=== PATIENT | male | born 2005 | race Caucasian/White ===

== ENCOUNTER 2024-04-14 15:47 | Inpatient (IN) ==
[2024-04-14] MEDS: SODIUM CHLORIDE 0.9% 2,000 ML IV ONE (16:34)
[2024-04-14] MEDS: ACETAMINOPHEN 1,000 MG/100 ML VIAL IV STA (16:43)
--- NOTE | 2024-04-14 17:10 | Emergency Department Note ---
Impression & Plan Sepsis, Influenza A, Multifocal pneumonia, TERRI (acute kidney injury), Acute hypoxemic respiratory failure, Thrombocytopenia, Elevated procalcitonin ED Provider Note HISTORY OF PRESENT ILLNESS: Patient is a 18-year-old male presenting with fevers, body aches and cough. Patient reports symptoms started 4 days ago. He has had a cough that has been nonproductive, fevers up to 102 Fahrenheit, subjective chills, shortness of breath and diarrhea. He denies any nausea or vomiting. He was seen by [facility] and referred to the emergency department "due to concern for potential pneumonia." EMS reported that the patient was vitally stable and route other than he was febrile. No medications given prehospital. Reports a generalized headache but denies any changes in vision, numbness or tingling or weakness in his extremities. Denies any recent rashes. He denies any sick contact exposures that he is aware of. Patient reports that he has been feeling very short of breath, both at rest and with exertion. He reports he is only able to take a few steps at a time before becoming significantly winded and having to stop to catch his breath. Denies any DVT or PE history. ROS: as above PHYSICAL EXAM: Constitutional: Patient appears in no acute distress. Ill appearing HENT: Head: Normocephalic and atraumatic. Eyes: EOMI, PERRL Mouth/Throat: Mucous membranes moist. Neck: Trachea midline. Neck supple. Full range of motion of the neck without meningismus. Cardiovascular: Tachycardic with regular rhythm. No murmurs, rubs or gallops. Intact distal pulses. Pulmonary/Chest: No respiratory distress. Breath sounds clear and equal bilaterally. No wheezes or rales. Abdominal: Abdomen soft, no tenderness, rebound or guarding. Musculoskeletal: No edema, tenderness or deformity noted. Skin: Warm and dry. No rash, erythema, pallor or cyanosis Psychiatric: Appropriate mood and affect for situation. Neurological: Alert and keenly responsive. CN II-XII grossly intact, moving all extremities equally and fully. MDM: - Vitals signs showed hypotension, tachycardia and fever. Borderline hypoxia at 93% on room air and was placed on 2 L nasal cannula. - History obtained via patient. History as above. - Chronic conditions affecting care: None - Differential diagnoses include, but are not limited to: Viral syndrome; pneumonia; bronchitis; electrolyte abnormality; dysrhythmia - Order placed for continuous cardiac monitoring. At this time, monitor showed rate of 103 bpm with normal sinus rhythm, per my interpretation. - External medical records reviewed. - EKG interpreted by myself showed normal sinus rhythm. Rate tachycardic at 112 bpm. QT 306. No acute ischemic changes. - Laboratory workup interpreted by myself showed normal WBC; thrombocytopenia (plt 101); normal PT/INR; hyponatremia (Na 133); elevated creatinine (Cr 2.14 - unknown baseline); normal troponin; normal lactate; elevated procalcitonin (30.80) - CXR showed multifocal pneumonia, per my interpretation. - Viral respiratory panel positive for influenza A. - Blood cultures obtained - Patient given 2.5L NS in ER. Patient's sepsis fluid volume calculation based on ideal body weight is 2018.10 mL - Patient given 1g IV tylenol for fever - Given 4 mg IV zofran for nausea and vomiting in ER. - Given IV vancomycin and 2g IV rocephin for antibiotic coverage - MRSA nasal swab and sputum culture were obtained. - Discussion was had with bottle caser about patient's case and need for admission - Hospitalist, Dr. Currie, consulted for admission - Patient admitted to [facility] service for further evaluation and management. I have personally spent 36 minutes of critical care time in the direct management of this patient. This includes bedside care, interpretation of diagnostic studies, and testing, discussion with consultants, patient, and family members, and other required patient management activities. This 36 minutes is in excess of all separately billable procedures. ASSESSMENT AND PLAN: Diagnosis: Sepsis; acute hypoxic respiratory failure; influenza A; multifocal pneumonia; TERRI; elevated procalcitonin; thrombocytopenia Plan: Admit Past Med/Surg History Problem List (Updated 04/14/24 @ 19:04 by Smith Currie MD) TERRI (acute kidney injury) Multifocal pneumonia Influenza A Sepsis Medical History (Updated 04/14/24 @ 19:04 by Smith Currie MD) History of viral meningitis Anxiety Surgical History (Updated 04/14/24 @ 19:04 by Smith Currie MD) No pertinent past surgical history Social History Smoking Status: Never smoker Feels Safe at Home: Yes Allergies Allergies Allergy/AdvReac Type Severity Reaction Status Date / Time amoxicillin Allergy Intermediate Hives Unverified 04/14/24 18:54 bacitracin Allergy Intermediate Unverified 04/14/24 14:57 [From Triple Antibiotic] Cephalosporins Allergy Intermediate Unverified 04/14/24 14:57 neomycin Allergy Intermediate Unverified 04/14/24 14:57 [From Triple Antibiotic] Penicillins Allergy Intermediate Unverified 04/14/24 14:57 polymyxin B Allergy Intermediate Unverified 04/14/24 14:57 [From Triple Antibiotic] Home Meds Home Medications Medication Instructions Recorded Confirmed sertraline 50 mg tablet 50 mg PO DAILY 04/14/24 04/14/24 Results & Data (ED) Vital Signs Vital Signs - 24 hr 04/14/24 16:19 04/14/24 16:30 04/14/24 16:31 Temperature 38.7 C H Temperature Source Oral Pulse Rate 139 H 130 H Pulse Rate [Left Apical] Respiratory Rate 18 Respiratory Effort / Characteristics Non-Labored Spontaneous Respiratory Depth Normal Respiratory Pattern Regular Blood Pressure 90/50 L 104/69 Blood Pressure [Right Arm] Blood Pressure Mean 63 86 Blood Pressure Mean [Right Arm] Pulse Oximetry 95 Oxygen Delivery Method Nasal Cannula Oxygen Flow Rate 2 Sepsis Recent Fever Within 48 Hours Yes Sepsis New/Unexplained Change in Mental Status N/A Sepsis Action Taken by Nursing Physician Notified Oxygen Flow Rate - Titration Pulse Oximetry Post Tiitration 04/14/24 16:33 04/14/24 17:00 04/14/24 17:12 Temperature Temperature Source Pulse Rate 123 H 121 H Pulse Rate [Left Apical] Respiratory Rate 23 Respiratory Effort / Characteristics Respiratory Depth Respiratory Pattern Blood Pressure Blood Pressure [Right Arm] 99/49 L Blood Pressure Mean Blood Pressure Mean [Right Arm] 65 Pulse Oximetry 98 92 Oxygen Delivery Method Nasal Cannula Nasal Cannula Oxygen Flow Rate 2 2 Sepsis Recent Fever Within 48 Hours Sepsis New/Unexplained Change in Mental Status Sepsis Action Taken by Nursing Oxygen Flow Rate - Titration Pulse Oximetry Post Tiitration 04/14/24 17:24 04/14/24 17:25 04/14/24 17:30 Temperature 38.2 C H Temperature Source Oral Pulse Rate Pulse Rate [Left Apical] 105 H Respiratory Rate 25 H Respiratory Effort / Characteristics Spontaneous Short of Breath Respiratory Depth Normal Respiratory Pattern Regular Blood Pressure 100/48 L Blood Pressure [Right Arm] Blood Pressure Mean 76 Blood Pressure Mean [Right Arm] Pulse Oximetry 94 Oxygen Delivery Method Nasal Cannula Oxygen Flow Rate 2 Sepsis Recent Fever Within 48 Hours Sepsis New/Unexplained Change in Mental Status Sepsis Action Taken by Nursing Oxygen Flow Rate - Titration Pulse Oximetry Post Tiitration 04/14/24 17:33 04/14/24 17:45 04/14/24 18:00 Temperature Temperature Source Pulse Rate 105 H 98 H Pulse Rate [Left Apical] Respiratory Rate 29 H 34 H Respiratory Effort / Characteristics Respiratory Depth Respiratory Pattern Blood Pressure Blood Pressure [Right Arm] Blood Pressure Mean Blood Pressure Mean [Right Arm] Pulse Oximetry 94 92 89 L Oxygen Delivery Method Nasal Cannula Nasal Cannula Nasal Cannula Oxygen Flow Rate 2 2 2 Sepsis Recent Fever Within 48 Hours Sepsis New/Unexplained Change in Mental Status Sepsis Action Taken by Nursing Oxygen Flow Rate - Titration 3 Pulse Oximetry Post Tiitration 90 04/14/24 18:08 04/14/24 18:09 04/14/24 18:12 Temperature Temperature Source Pulse Rate 107 H 112 H Pulse Rate [Left Apical] Respiratory Rate 23 29 H Respiratory Effort / Characteristics Respiratory Depth Respiratory Pattern Blood Pressure Blood Pressure [Right Arm] Blood Pressure Mean Blood Pressure Mean [Right Arm] Pulse Oximetry 90 90 90 Oxygen Delivery Method Nasal Cannula Nasal Cannula Nasal Cannula Oxygen Flow Rate 3 4 4 Sepsis Recent Fever Within 48 Hours Sepsis New/Unexplained Change in Mental Status Sepsis Action Taken by Nursing Oxygen Flow Rate - Titration 4 Pulse Oximetry Post Tiitration 91 04/14/24 18:15 04/14/24 18:33 04/14/24 18:54 Temperature 37.5 C Temperature Source Oral Pulse Rate 112 H 103 H Pulse Rate [Left Apical] Respiratory Rate 35 H 33 H Respiratory Effort / Characteristics Respiratory Depth Respiratory Pattern Blood Pressure Blood Pressure [Right Arm] Blood Pressure Mean Blood Pressure Mean [Right Arm] Pulse Oximetry 90 93 Oxygen Delivery Method Nasal Cannula Nasal Cannula Oxygen Flow Rate 4 4 Sepsis Recent Fever Within 48 Hours Sepsis New/Unexplained Change in Mental Status Sepsis Action Taken by Nursing Oxygen Flow Rate - Titration Pulse Oximetry Post Tiitration 04/14/24 19:00 Temperature Temperature Source Pulse Rate 103 H Pulse Rate [Left Apical] Respiratory Rate 32 H Respiratory Effort / Characteristics Respiratory Depth Respiratory Pattern Blood Pressure Blood Pressure [Right Arm] Blood Pressure Mean Blood Pressure Mean [Right Arm] Pulse Oximetry 92 Oxygen Delivery Method Nasal Cannula Oxygen Flow Rate 4 Sepsis Recent Fever Within 48 Hours Sepsis New/Unexplained Change in Mental Status Sepsis Action Taken by Nursing Oxygen Flow Rate - Titration Pulse Oximetry Post Tiitration Laboratory Data 04/14/24 16:40 04/14/24 16:40 Lab Results 04/14/24 Range/Units 16:40 WBC 5.37 (4.8-10.8) K/ul RBC 4.50 L (4.70-6.10) M/uL Hgb 13.9 L (14.0-18.0) g/dl Hct 38.1 L (42.0-52.0) % MCV 84.7 (80.0-100.0) fL MCH 30.9 (25.0-34.0) pg MCHC 36.5 H (32.0-36.0) g/dL RDW Std Deviation 38.5 (36.4-46.3) fL RDW Coeff of Adam 12.6 (11.5-14.5) % Plt Count 101 L (130-400) K/uL MPV 11.4 (9.4-12.4) fL Immature Gran % (Auto) 0.9 % Neut % (Auto) 90.1 % Lymph % (Auto) 4.3 % Gonzales % (Auto) 4.1 % Eos % (Auto) 0.0 % Baso % (Auto) 0.6 % Neut # (Auto) 4.84 (1.40-6.50) K/uL Lymph # (Auto) 0.23 L (1.20-3.40) K/uL Gonzales # (Auto) 0.22 (0.11-0.59) K/uL Eos # (Auto) 0.00 (0.00-0.50) K/uL Baso # (Auto) 0.03 (0.00-0.20) K/uL Immature Gran # (Auto) 0.05 (0.01-0.20) K/uL Toxic Vacuolation 1+ Dohle Bodies 1+ PT 11.4 (9.0-12.0) Seconds INR 1.1 (0.9-1.1) APTT 30 (21-31) Seconds PTT Ratio 1.1 Sodium 133 L (136-145) mmol/L Potassium 3.7 (3.5-5.1) mmol/L Chloride 101 (98-107) mmol/L Carbon Dioxide 22 (21-32) mmol/L Anion Gap 10 (3-11) BUN 46 H (6-23) mg/dl Creatinine 2.14 H (0.6-1.4) mg/dl Est Cr Clr Drug Dosing 39.1 ml/min eGFR 44.35 BUN/Creatinine Ratio 21.5 H (10-20) Glucose 117 H (70-99(Fasting)) mg/dl Lactate 1.8 (0.4-2.0) mmol/L Calcium 8.2 L (8.6-10.3) mg/dl Magnesium 2.2 (1.7-2.4) mg/dl Total Bilirubin 2.4 H (0.2-1.0) mg/dl AST 35 (13-39) U/L ALT 20 (7-52) U/L Alkaline Phosphatase 34 (34-104) U/L Troponin I High Sens 17.4 (0-20) pg/ml Total Protein 6.4 (6.0-8.3) gm/dl Albumin 3.8 (3.4-5.0) gm/dl Globulin 2.6 (2.5-4.0) gm/dl Albumin/Globulin Ratio 1.5 (0.9-2) Procalcitonin 30.80 H (0-0.5) ng/ml Adenovirus (PCR) Not Detected (NotDetected) B. pertussis DNA (PCR) Not Detected (NotDetected) B.parapertussis DNA PCR Not Detected (NotDetected) C. pneumoniae DNA (PCR) Not Detected (NotDetected) Coronavirus OC43 (PCR) Not Detected (NotDetected) Coronavirus HKU1 (PCR) Not Detected (NotDetected) Coronavirus 229E (PCR) Not Detected (NotDetected) SARS-CoV-2 (PCR) Not Detected (NotDetected) Coronavirus NL63 (PCR) Not Detected (NotDetected) Human Metapneumovir PCR Not Detected (NotDetected) Influenza A (H3) PCR DETECTED A (NotDetected) Influenza Type B (PCR) Not Detected (NotDetected) M. pneumoniae (PCR) Not Detected (NotDetected) Parainfluenza 1 (PCR) Not Detected (NotDetected) Parainfluenza 2 (PCR) Not Detected (NotDetected) Parainfluenza 3 (PCR) Not Detected (NotDetected) Parainfluenza 4 (PCR) Not Detected (NotDetected) RSV (PCR) Not Detected (NotDetected) Entero/Rhino (PCR) Not Detected (NotDetected) Administered Medications Vancomycin HCl 1,250 mg/ (Sodium Chloride) 525 mls @ 200 mls/hr IV NOW ONE Stop: 04/14/24 20:01 Last Admin: 04/14/24 18:12 Dose: 200 mls/hr Documented By: KILEY Discontinued Medications Sodium Chloride (Nss) 2,000 mls @ 999 mls/hr IV .Q2H1M ONE Stop: 04/14/24 18:26 Last Infusion: 04/14/24 18:30 Dose: Infused Documented By: [facility] Admin: 04/14/24 16:34 Dose: 999 mls/hr Documented By: KYLEE Sodium Chloride (Nss) 500 mls @ 999 mls/hr IV .Q31M ONE Stop: 04/14/24 16:56 Last Infusion: 04/14/24 18:02 Dose: Infused Documented By: [facility] Admin: 04/14/24 17:22 Dose: 999 mls/hr Documented By: KILEY Acetaminophen (Ofirmev) 1,000 mg in 100 mls @ 400 mls/hr IV NOW STA Stop: 04/14/24 16:41 Last Infusion: 04/14/24 16:59 Dose: Infused Documented By: [facility] Admin: 04/14/24 16:43 Dose: 400 mls/hr Documented By: KILEY Ceftriaxone Sodium (Rocephin) 2,000 mg in 50 mls @ 100 mls/hr IV NOW STA Stop: 04/14/24 17:53 Last Infusion: 04/14/24 18:20 Dose: Infused Documented By: [facility] Admin: 04/14/24 17:55 Dose: 100 mls/hr Documented By: KILEY Ondansetron HCl (Ondansetron Inj 2 Mg/Ml 2 Ml Vial) 4 mg IV NOW STA Stop: 04/14/24 18:03 Last Admin: 04/14/24 18:06 Dose: 4 mg Documented By: [facility] Imaging Data Radiologist's Impression: Chest X-Ray 04/14/24 16:26 Chest radiograph, one view History: Sepsis Comparison: None Findings: Single AP view of the chest performed. Patchy opacities are seen throughout the left mid and lower lung, as well as some subtle opacity overlying the perihilar right lower lung. No visualized pleural effusion. No pneumothorax. The cardiomediastinal silhouette is within normal limits. Normal pulmonary vascularity. No evidence for lymphadenopathy. No visualized bony or soft tissue abnormality. Impression: Findings consistent with multifocal pneumonia Electronically signed by Marshall Jefferson 04-14-2024 5:35 PM Discharge Plan Visit Data Chief Complaint: Illness ED Provider: Claudine Giraldo Discharge Problem: Sepsis, Influenza A, Multifocal pneumonia, TERRI (acute kidney injury), Acute hypoxemic respiratory failure, Thrombocytopenia, Elevated procalcitonin Forms Stand Alone Forms: My [facility] Prescriptions Prescriptions: No Action sertraline 50 mg tablet 50 mg PO DAILY Referrals Referrals: PCP,NO [Physician] -
[2024-04-14 17:11] LABS: Albumin Globulin Ratio 1.5 (0.9-2); Albumin Level 3.8 gm/dl (3.4-5.0); BUN Creatinine Ratio 21.5 (10-20); Bilirubin,Total 2.4 mg/dl (0.2-1.0); Calcium 8.2 mg/dl (8.6-10.3); Creatinine Clr Calc Pharmacy 39.1 ml/min; Globulin 2.6 gm/dl (2.5-4.0); Magnesium 2.2 mg/dl (1.7-2.4); Potassium 3.7 mmol/L (3.5-5.1); Total Protein 6.4 gm/dl (6.0-8.3)
[2024-04-14 17:17] LABS: Troponin I High Sensitivity 17.4 pg/ml (0-20)
[2024-04-14 17:22] LABS: Basophils # (auto) 0.03 K/uL (0.00-0.20); Basophils % (auto) 0.6 %; Dohle Bodies 1+; Hematocrit (blood only) 38.1 % (42.0-52.0); Hemoglobin 13.9 g/dl (14.0-18.0); Immature Granulocytes # (auto) 0.05 K/uL (0.01-0.20); Immature Granulocytes % (auto) 0.9 %; Lymphocytes # (auto) 0.23 K/uL (1.20-3.40); Lymphocytes % (auto) 4.3 %; Mean Corpuscular Hemoglobin 30.9 pg (25.0-34.0); Mean Corpuscular Hgb Conc 36.5 g/dL (32.0-36.0); Mean Corpuscular Volume 84.7 fL (80.0-100.0); Mean Platelet Volume 11.4 fL (9.4-12.4); Monocytes # (auto) 0.22 K/uL (0.11-0.59); Monocytes % (auto) 4.1 %; Neutrophils # (auto) 4.84 K/uL (1.40-6.50); Neutrophils % (auto) 90.1 %; Platelet Count 101 K/uL (130-400); RDW Coefficient of Variation 12.6 % (11.5-14.5); RDW Standard Deviation 38.5 fL (36.4-46.3); Toxic Vacuolation 1+; White Blood Count 5.37 K/ul (4.8-10.8)
[2024-04-14] MEDS: SODIUM CHLORIDE 0.9% 500 ML IV ONE (17:22)
[2024-04-14] MEDS ORDERED: VANCOMYCIN CONSULT ACTIVE PRN (17:24)
--- NOTE | 2024-04-14 17:35 | XRay Report ---
Chest radiograph, one view History: Sepsis Comparison: None Findings: Single AP view of the chest performed. Patchy opacities are seen throughout the left mid and lower lung, as well as some subtle opacity overlying the perihilar right lower lung. No visualized pleural effusion. No pneumothorax. The cardiomediastinal silhouette is within normal limits. Normal pulmonary vascularity. No evidence for lymphadenopathy. No visualized bony or soft tissue abnormality. Impression: Findings consistent with multifocal pneumonia Electronically signed by Marshall Jefferson 04-14-2024 5:35 PM
[2024-04-14 17:41] LABS: Adenovirus PCR Not Detected (NotDetected); Bordetella parapertussis PCR Not Detected (NotDetected); Bordetella pertussis PCR Not Detected (NotDetected); Chlamydia pneumoniae PCR Not Detected (NotDetected); Coronavirus 229E PCR Not Detected (NotDetected); Coronavirus CoV-2 (COVID19)PCR Not Detected (NotDetected); Coronavirus HKU1 PCR Not Detected (NotDetected); Coronavirus NL63 PCR Not Detected (NotDetected); Coronavirus OC43PCR Not Detected (NotDetected); Human Metapneumovirus PCR Not Detected (NotDetected); Influenza A (H3) PCR DETECTED (NotDetected); Influenza B PCR Not Detected (NotDetected); Mycoplasma pneumoniae PCR Not Detected (NotDetected); Parainfluenza Virus 1 PCR Not Detected (NotDetected); Parainfluenza Virus 2 PCR Not Detected (NotDetected); Parainfluenza Virus 3 PCR Not Detected (NotDetected); Parainfluenza Virus 4 PCR Not Detected (NotDetected); Respiratory Syncytial VirusPCR Not Detected (NotDetected); Rhinovirus/Enterovirus PCR Not Detected (NotDetected)
[2024-04-14 17:53] LABS: INR 1.1 (0.9-1.1); Partial Thromboplastin Ratio 1.1; Partial Thromboplastin Time 30 Seconds (21-31); Prothrombin Time 11.4 Seconds (9.0-12.0)
[2024-04-14] MEDS: cefTRIAXone SODIUM 2,000 MG/50 ML BAG IV STA (17:55)
[2024-04-14] MEDS: ONDANSETRON INJ 2 MG/ML 2 ML VIAL IV STA (18:06)
[2024-04-14] MEDS: VANCOMYCIN HCL 1,250 MG in SODIUM CHLORIDE 0.9% 500 ML IV ONE (18:12)
--- NOTE | 2024-04-14 18:41 | History & Physical Report ---
Date of Service April 14, 2024 Assessment & Plan (1) Sepsis: Plan: Received sepsis bolus fluids 2.5L NSS, hypotensive 82/48 at urgent care 90/50 on arrival to ER, lactate 1.8 Suspected source multifocal pneumonia (2) Multifocal pneumonia: Plan: Vancomycin IV (can be discontinued if MRSA nasal swab negative) Ceftriaxone IV - noted cephalosporin allergy although this was given in the ER and appears to be tolerating this currently Doxycycline IV Incentive spirometer Flutter valve Sputum culture Consider repeating procalcitonin (30.8 on admission) in 3-5 days to determine duration of antibiotics (3) Influenza A: Plan: Droplet isolation precautions Tamiflu 75mg PO BID (renally dosed) (4) TERRI (acute kidney injury): Plan: Unknown baseline but suspect Cr > 1.5x normal @ 2.14 on admission Suspect from hypotension and pre-renal from diarrhea (5) Acute respiratory failure with hypoxia: Plan: Secondary to pneumonia Aim O2 sats > 94% (6) Diarrhea: Plan: Stool and c. diff PCR If PCR negative will consider adding loperamide (7) Thrombocytopenia: Plan: Secondary to sepsis, continue to monitor with AM labs (8) Anxiety: Plan: Continue sertraline Plan VTE Prophylaxis - low risk Diet - clear liquid, advance diet Disposition - admit to PCU Admission and Anticipated Discharge Date Admission Date: April 14, 2024 History of Present Illness Chief Complaint: Diarrhea, fever, dizziness Primary Care Provider: [facility] George Jean-Baptiste is a 18 year old male who presents to the ER with generalized illness since . He reports sickness including diarrhea, fever, dizziness, body aches, shortness of breath, generalized fatigue, nausea and vomiting. He denies any nasal congestion, sinus pain, sore throat or urinary symptoms. No history of antibiotics in the last month or c. diff but he has noticed his diarrhea is watery. No melena or bright red blood in stool. While his mother was outside the room he denies any illicit substances, vaping, tobacco use or marijuana. His mother notes he has generally been more unwell since having meningitis 1.5 years ago for example having abnormal thyroid levels for which he sees endocrinology but does not take any medications. Allergies Allergy/AdvReac Type Severity Reaction Status Date / Time amoxicillin Allergy Intermediate Hives Unverified 04/14/24 18:54 bacitracin Allergy Intermediate Unverified 04/14/24 14:57 [From Triple Antibiotic] Cephalosporins Allergy Intermediate Unverified 04/14/24 14:57 neomycin Allergy Intermediate Unverified 04/14/24 14:57 [From Triple Antibiotic] Penicillins Allergy Intermediate Unverified 04/14/24 14:57 polymyxin B Allergy Intermediate Unverified 04/14/24 14:57 [From Triple Antibiotic] Home Medications Medication Instructions Recorded Confirmed Type sertraline 50 mg tablet 50 mg PO DAILY 04/14/24 04/14/24 History Past Med/Surg History Problem List (Updated 04/14/24 @ 20:52 by Smith Currie MD) Thrombocytopenia Diarrhea Acute respiratory failure with hypoxia TERRI (acute kidney injury) Multifocal pneumonia Influenza A Sepsis Medical History (Updated 04/14/24 @ 20:52 by Smith Currie MD) History of viral meningitis Anxiety Surgical History (Updated 04/14/24 @ 19:04 by Smith Currie MD) No pertinent past surgical history Social History Smoking Status: Never smoker Second Hand Exposure: No; Do You Dip or Chew Tobacco: No; Hx Alcohol Use: No Hx Substance Use: No Preferred Language: Hungarian Communication Ability: Effective Sewing Room Supervisor Required: No Beliefs That Will Affect Care: None Current Living Situation: Family Current Living Situation Comment: lives at home with parent s Feels Safe at Home: Yes Assistive Devices: None Review of Systems Review of Systems: All systems reviewed & are unremarkable except as noted in HPI & below Physical Exam Constitutional: WD/WN, vitals as above Eyes: + anicteric sclerae; normal pupil size ENMT: Mouth: + dry oral mucous membranes Respiratory: + tachypneic Auscultation: + crackles (Left lower lobe); breath sounds present, no diminished lung sounds and no wheezes Cardiovascular: Rate/Rhythm: regular rhythm and + tachycardic Heart Sounds: no murmur Extremities: normal capillary refill; no calf tenderness and no pedal edema Chest (Breasts): Additional Comments: Mild pectus excavatum Gastrointestinal (Abdomen): normal bowel sounds, soft, nontender, no hepatosplenomegaly Musculoskeletal: no cyanosis or clubbing, extremities motor strength 5/5 Skin: no rashes, warm and dry Neurologic: moves all extremities and awake; not confused Psychiatric: A+Ox3, euthymic affect Genitourinary: no CVA tenderness Results & Data Results & Data Vital Signs (Past 12 Hours) Vital Signs Temp Pulse Pulse Resp BP BP Pulse Ox 04/14/24 18:15 37.5 C 04/14/24 18:09 107 H 23 90 04/14/24 18:08 90 04/14/24 18:00 89 L 04/14/24 17:45 98 H 34 H 92 04/14/24 17:33 105 H 29 H 94 04/14/24 17:30 100/48 L 04/14/24 17:25 105 H 25 H 94 04/14/24 17:24 38.2 C H 04/14/24 17:12 121 H 92 04/14/24 17:00 99/49 L 04/14/24 16:33 123 H 23 98 04/14/24 16:31 130 H 04/14/24 16:30 104/69 04/14/24 16:19 38.7 C H 139 H 18 90/50 L 95 O2 Del Method O2 Flow Rate 04/14/24 18:15 04/14/24 18:09 Nasal Cannula 4 04/14/24 18:08 Nasal Cannula 3 04/14/24 18:00 Nasal Cannula 2 04/14/24 17:45 Nasal Cannula 2 04/14/24 17:33 Nasal Cannula 2 04/14/24 17:30 04/14/24 17:25 Nasal Cannula 2 04/14/24 17:24 04/14/24 17:12 Nasal Cannula 2 04/14/24 17:00 04/14/24 16:33 Nasal Cannula 2 04/14/24 16:31 04/14/24 16:30 04/14/24 16:19 Nasal Cannula 2 Laboratory Results Abnormal lab results 04/14/24 Range/Units 16:40 RBC 4.50 L (4.70-6.10) M/uL Hgb 13.9 L (14.0-18.0) g/dl Hct 38.1 L (42.0-52.0) % MCHC 36.5 H (32.0-36.0) g/dL Plt Count 101 L (130-400) K/uL Lymph # (Auto) 0.23 L (1.20-3.40) K/uL Sodium 133 L (136-145) mmol/L BUN 46 H (6-23) mg/dl Creatinine 2.14 H (0.6-1.4) mg/dl BUN/Creatinine Ratio 21.5 H (10-20) Glucose 117 H (70-99(Fasting)) mg/dl Calcium 8.2 L (8.6-10.3) mg/dl Total Bilirubin 2.4 H (0.2-1.0) mg/dl Procalcitonin 30.80 H (0-0.5) ng/ml Influenza A (H3) PCR DETECTED A (NotDetected) Diagnostic Findings Chest radiograph, one view History: Sepsis Comparison: None Findings: Single AP view of the chest performed. Patchy opacities are seen throughout the left mid and lower lung, as well as some subtle opacity overlying the perihilar right lower lung. No visualized pleural effusion. No pneumothorax. The cardiomediastinal silhouette is within normal limits. Normal pulmonary vascularity. No evidence for lymphadenopathy. No visualized bony or soft tissue abnormality. Impression: Findings consistent with multifocal pneumonia Medications Administered ER Medications Given: Vancomycin 1250mg IV Normal saline 2L bolus Normal saline 500ml bolus Acetaminophen 1000mg IV Ceftriaxone 2000mg IV Ondansetron 4mg IV ECG Rate (beats per minute): 122 Rhythm: sinus tachycardia Findings: + other (rightward axis); no acute ischemic change Comparison ECG Date: no prior available Code Status & VTE Plan Code Status Full VTE Prophylaxis Plan VTE Prophylaxis will be ordered: No PG Care Time/CCT Total # of Minutes Spent Total Time Spent with Patient: Total time spent is greater than 50% in coordination of care (as documented) at patient's floor/unit and/or counseling patient: Coding Level of Care Code 47765 INT INP/OBS CARE 375MIN Diagnoses Sepsis with acute renal failure without septic shock, due to unspecified organism, unspecified acute renal failure type A41.9; R65.20; N17.9 Sepsis type: sepsis due to unspecified organism Sepsis acute organ dysfunction status: with acute organ dysfunction Severe sepsis acute organ dysfunction type: acute renal failure Acute renal failure type: unspecified Severe sepsis shock status: without septic shock Multifocal pneumonia J18.9 Influenza A J10.1 TERRI (acute kidney injury) N17.9 Acute respiratory failure with hypoxia J96.01 Diarrhea R19.7 Thrombocytopenia D69.6 Anxiety F41.9 (1) Sepsis Sepsis type: sepsis due to unspecified organism Sepsis acute organ dysfunction status: with acute organ dysfunction Severe sepsis acute organ dysfunction type: acute renal failure Acute renal failure type: unspecified Severe sepsis shock status: without septic shock Qualified Code(s): A41.9 - Sepsis, unspecified organism; R65.20 - Severe sepsis without septic shock; N17.9 - Acute kidney failure, unspecified
[2024-04-14] MEDS: SODIUM CHLORIDE 0.9% 1,000 ML IV SCH (20:03)
[2024-04-14] MEDS: DOXYCYCLINE HYCLATE 100 MG in DEXTROSE 5% MINI-B 100 ML IV STA (20:06)
[2024-04-14 22:00] LABS: Appearance Urine Cloudy (Clear); Bacteria Urine Automated None Seen (None Seen); Bilirubin Urine Negative (Negative); Blood Urine Negative (Negative); Color Urine Yellow; Glucose Urine UA Negative (Negative); Ketones Urine Negative (Negative); Leukocyte Esterase Urine Negative (Negative); Nitrite Urine Negative (Negative); Protein Urine 2+ (Negative); RBC Urine Automated 0-2 /hpf (0-2); Specific Gravity Urine 1.021 (1.000-1.030); Urobilinogen Urine Negative (Negative); WBC Urine Automated 0-5 /hpf (0-5); pH Urine 5.5 (4.5-7.5)
[2024-04-14] MEDS: OSELTAMIVIR PHOSPHATE SUSP 30 MG/5 ML UDP PO SCH (23:06)
[2024-04-15] MEDS: ACETAMINOPHEN 325 MG TAB PO PRN (03:32)
[2024-04-15 06:33] LABS: Hemoglobin 11.2 g/dl (14.0-18.0); Mean Corpuscular Hemoglobin 31.2 pg (25.0-34.0); Mean Corpuscular Hgb Conc 36.1 g/dL (32.0-36.0); Mean Corpuscular Volume 86.4 fL (80.0-100.0); Mean Platelet Volume 11.8 fL (9.4-12.4); Platelet Count 94 K/uL (130-400); RDW Standard Deviation 40.8 fL (36.4-46.3); Red Blood Count 3.59 M/uL (4.70-6.10)
[2024-04-15 06:37] LABS: Albumin Globulin Ratio 1.4 (0.9-2); BUN Creatinine Ratio 18.7 (10-20); Bilirubin,Total 1.2 mg/dl (0.2-1.0); Calcium 7.2 mg/dl (8.6-10.3); Creatinine Clr Calc Pharmacy 51.7 ml/min; Globulin 2.1 gm/dl (2.5-4.0); Phosphorus 2.1 mg/dl (2.5-4.9); Potassium 3.3 mmol/L (3.5-5.1); Total Protein 5.1 gm/dl (6.0-8.3)
[2024-04-15 07:03] LABS: Basophils # (auto) 0.01 K/uL (0.00-0.20); Basophils % (auto) 0.3 %; Immature Granulocytes # (auto) 0.03 K/uL (0.01-0.20); Immature Granulocytes % (auto) 0.8 %; Monocytes # (auto) 0.11 K/uL (0.11-0.59); Monocytes % (auto) 2.8 %; Neutrophils # (auto) 3.65 K/uL (1.40-6.50); Neutrophils % (auto) 91.1 %
[2024-04-15] MEDS: DOXYCYCLINE HYCLATE 100 MG in DEXTROSE 5% MINI-B 100 ML IV SCH (08:36)
[2024-04-15] MEDS: SERTRALINE HCL 50 MG TABLET PO SCH (08:36)
--- NOTE | 2024-04-15 11:18 | Hospitalist Progress Note ---
Date of Service April 15, 2024 Assessment & Plan (1) Sepsis: Plan: Suspected source multifocal pneumonia, due to Influenza A Resiolving (2) Multifocal pneumonia: Plan: Chest x ray shows evidence of multifocal PNA Biofire positive for Influenza A Continue tamiflu Also, there is a possiblilty of superimposed bacteria infection, will continue empiric ceftriaxone and Doxycycline Duonebs Incentive spirometer Flutter valve Sputum culture Consider repeating procalcitonin (30.8 on admission) in 3-5 days to determine duration of antibiotics (3) Influenza A: Plan: Droplet isolation precautions Tamiflu 75mg PO BID (renally dosed) (4) TERRI (acute kidney injury): Plan: Unknown baseline but suspect Cr > 1.5x normal @ 2.14 on admission Suspect from hypotension and pre-renal from diarrhea (5) Acute respiratory failure with hypoxia: Plan: Secondary to pneumonia Aim O2 sats > 94% (6) Diarrhea: Plan: Stool and c. diff PCR If PCR negative will consider adding loperamide (7) Thrombocytopenia: Plan: Secondary to sepsis, continue to monitor with AM labs (8) Anxiety: Plan: Continue sertraline Plan VTE Prophylaxis - low risk Diet - clear liquid, advance diet Disposition - admit to PCU Admission and Anticipated Discharge Date Admission Date: April 14, 2024 Subjective patient seen and examined, says his SOb did not improve, still coughing up sputum Review of Systems Review of Systems: All systems reviewed are negative, apart from the ones contained in the history. Physical Exam Physical Exam: The patient is awake, alert and oriented 3, well developed and well nourished, normocephalic and atraumatic, lying in bed and in no acute distress. HEENT--PERRL, EOMI, mucous membranes and oropharynx mildly dry Neck--supple. No JVD. No bruits. Thyroid normal, trachea midline, no adenopathy. Heart--normal S1 and S2. No murmurs, rubs or gallops. Lungs--Reduced air entry on auscultation Abdomen--normal bowel sounds and soft. Extremities--no cyanosis or clubbing. No edema. Dermatologic--normal skin turgor, normal color, no abnormal lymph nodes, no rash. Neurologic--cranial nerves II through XII grossly intact. Rheumatologic--normal range of motion. Psychiatric--normal affect. Results & Data Results & Data Vital Signs (Past 12 Hours) Vital Signs Temp Pulse Pulse Resp BP BP Pulse Ox 04/15/24 09:36 04/15/24 08:22 94 04/15/24 08:18 100/62 04/15/24 07:53 105 H 04/15/24 07:50 98.8 F 101 H 16 88/55 L 90 04/15/24 04:34 99.5 F 100 H 24 101/55 L 93 04/15/24 03:27 102.9 F H 126 H 18 92/55 L 89 L O2 Del Method O2 Flow Rate 04/15/24 09:36 Nasal Cannula 7 04/15/24 08:22 Nasal Cannula 7 04/15/24 08:18 04/15/24 07:53 04/15/24 07:50 Nasal Cannula 6 04/15/24 04:34 Nasal Cannula 6 04/15/24 03:27 Nasal Cannula 4 PG Care Time/CCT Total # of Minutes Spent Total Time Spent with Patient: Total time spent is greater than 50% in coordination of care (as documented) at patient's floor/unit and/or counseling patient: Coding Level of Care Code 42884 SUB INP/OBS CARE 2/35MIN Diagnoses Sepsis with acute renal failure without septic shock, due to unspecified organism, unspecified acute renal failure type A41.9; R65.20; N17.9 Sepsis type: sepsis due to unspecified organism Sepsis acute organ dysfunction status: with acute organ dysfunction Severe sepsis acute organ dysfunction type: acute renal failure Acute renal failure type: unspecified Severe sepsis shock status: without septic shock Multifocal pneumonia J18.9 Influenza A J10.1 TERRI (acute kidney injury) N17.9 Acute respiratory failure with hypoxia J96.01 Diarrhea R19.7 Thrombocytopenia D69.6 Anxiety F41.9 Time Spent (min) 35 (1) Sepsis Sepsis type: sepsis due to unspecified organism Sepsis acute organ dysfunction status: with acute organ dysfunction Severe sepsis acute organ dysfunction type: acute renal failure Acute renal failure type: unspecified Severe sepsis shock status: without septic shock Qualified Code(s): A41.9 - Sepsis, unspecified organism; R65.20 - Severe sepsis without septic shock; N17.9 - Acute kidney failure, unspecified
--- NOTE | 2024-04-15 11:20 | Electrocardiogram Report ---
Test Reason : Blood Pressure : */* mmHG Vent. Rate : 122 BPM Atrial Rate : 122 BPM P-R Int : 120 ms QRS Dur : 76 ms QT Int : 306 ms P-R-T Axes : 46 92 31 degrees QTcB Int : 436 ms Sinus tachycardia Rightward axis Borderline ECG No previous ECGs available Confirmed by Joseph Moreno ([id number]) on 04/15/2024 11:20:28 AM Referred By: REFERRED SELF Confirmed By: Joseph Moreno
[2024-04-15] MEDS: ONDANSETRON INJ 2 MG/ML 2 ML VIAL IV PRN (12:00)
[2024-04-15 16:38] LABS: Adenovirus F 40/41 PCR Not Detected (NotDetected); Astrovirus PCR Not Detected (NotDetected); Campylobacter PCR Not Detected (NotDetected); Cryptosporidium PCR Not Detected (NotDetected); Cyclospora cayetanensis PCR Not Detected (NotDetected); Entamoeba histolytica PCR Not Detected (NotDetected); Enteroaggregative E.coli(EAEC) Not Detected (NotDetected); Enteropathogenic E.coli (EPEC) Not Detected (NotDetected); Enterotoxigenic E.coli (ETEC) Not Detected (NotDetected); Giardia lamblia PCR Not Detected (NotDetected); Norovirus GI/GII PCR Not Detected (NotDetected); Plesiomonas shigelloides PCR Not Detected (NotDetected); Rotavirus A PCR Not Detected (NotDetected); Salmonella PCR Not Detected (NotDetected); Sapovirus PCR Not Detected (NotDetected); Shiga-like Toxin E.coli (STEC) Not Detected (NotDetected); Shigella/Enteroinvasive E.coli Not Detected (NotDetected); Vibrio cholerae PCR Not Detected (NotDetected); Vibrio species PCR Not Detected (NotDetected); Yersinia enterocolitica PCR Not Detected (NotDetected)
[2024-04-15] MEDS: cefTRIAXone SODIUM 2,000 MG/50 ML BAG IV SCH (18:03)
[2024-04-16] MEDS: ALBUT/IPRATROP 3MG/0.5MG NEB 3 ML VIAL ONE (04:43)
[2024-04-16] MEDS: ALBUT/IPRATROP 3MG/0.5MG NEB 3 ML VIAL NEB STA (04:44)
[2024-04-16] MEDS ORDERED: methylPREDNISolone 125 MG/2 ML VIAL IV SCH (09:45)
--- NOTE | 2024-04-16 09:51 | Hospitalist Progress Note ---
Date of Service April 16, 2024 Assessment & Plan (1) Sepsis: Plan: Suspected source multifocal pneumonia, due to Influenza A Resiolving (2) Multifocal pneumonia: Plan: Chest x ray shows evidence of multifocal PNA Biofire positive for Influenza A Continue tamiflu Also, there is a possiblilty of superimposed bacteria infection, will continue empiric ceftriaxone and Doxycycline Duonebs Incentive spirometer Flutter valve Sputum culture Consider repeating procalcitonin (30.8 on admission) in 3-5 days to determine duration of antibiotics (3) Influenza A: Plan: Droplet isolation precautions Tamiflu 75mg PO BID (renally dosed) (4) TERRI (acute kidney injury): Plan: Unknown baseline but suspect Cr > 1.5x normal @ 2.14 on admission Suspect from hypotension and pre-renal from diarrhea continue to monitor (5) Acute respiratory failure with hypoxia: Plan: Secondary to pneumonia some wheeze on exam start solumedrol 40mg Q8h, duonebs Aim O2 sats > 94% (6) Diarrhea: Plan: Stool and c. diff PCR If PCR negative will consider adding loperamide (7) Thrombocytopenia: Plan: Secondary to sepsis, continue to monitor with AM labs (8) Anxiety: Plan: Continue sertraline Plan VTE Prophylaxis - low risk Diet - clear liquid, advance diet Disposition - admit to PCU Admission and Anticipated Discharge Date Admission Date: April 14, 2024 Subjective patient seen and examined, says his SOB did improve, still coughing up sputum Review of Systems Review of Systems: All systems reviewed are negative, apart from the ones contained in the history. Physical Exam Physical Exam: The patient is awake, alert and oriented 3, well developed and well nourished, normocephalic and atraumatic, lying in bed and in no acute distress. HEENT--PERRL, EOMI, mucous membranes and oropharynx mildly dry Neck--supple. No JVD. No bruits. Thyroid normal, trachea midline, no adenopathy. Heart--normal S1 and S2. No murmurs, rubs or gallops. Lungs--Reduced air entry on auscultation, some wheeze Abdomen--normal bowel sounds and soft. Extremities--no cyanosis or clubbing. No edema. Dermatologic--normal skin turgor, normal color, no abnormal lymph nodes, no rash. Neurologic--cranial nerves II through XII grossly intact. Rheumatologic--normal range of motion. Psychiatric--normal affect. Results & Data Results & Data Vital Signs (Past 12 Hours) Vital Signs Temp Pulse Pulse Resp BP BP Pulse Ox 04/16/24 08:14 97.7 F 94 H 20 103/67 94 04/16/24 04:43 105 H 20 94 04/16/24 02:06 97.7 F 83 18 116/71 95 04/16/24 02:03 84 24 95 04/16/24 01:30 22 94 04/16/24 01:20 79 24 92 04/15/24 23:50 98.2 F 89 18 112/71 93 04/15/24 23:00 97.5 F L 88 20 110/71 97 04/15/24 21:55 71 O2 Del Method O2 Flow Rate 04/16/24 08:14 Room Air 9 04/16/24 04:43 Oxymask 8 04/16/24 02:06 Oxymask 6 04/16/24 02:03 Oxymask 6 04/16/24 01:30 Nasal Cannula 6 04/16/24 01:20 Nasal Cannula 4 04/15/24 23:50 Nasal Cannula 4 04/15/24 23:00 Nasal Cannula 5 04/15/24 21:55 PG Care Time/CCT Total # of Minutes Spent Total Time Spent with Patient: Total time spent is greater than 50% in coordination of care (as documented) at patient's floor/unit and/or counseling patient: Coding Level of Care Code 57040 SUB INP/OBS CARE 2/35MIN Diagnoses Sepsis with acute renal failure without septic shock, due to unspecified organism, unspecified acute renal failure type A41.9; R65.20; N17.9 Sepsis type: sepsis due to unspecified organism Sepsis acute organ dysfunction status: with acute organ dysfunction Severe sepsis acute organ dysfunction type: acute renal failure Acute renal failure type: unspecified Severe sepsis shock status: without septic shock Multifocal pneumonia J18.9 Influenza A J10.1 TERRI (acute kidney injury) N17.9 Acute respiratory failure with hypoxia J96.01 Diarrhea R19.7 Thrombocytopenia D69.6 Anxiety F41.9 Time Spent (min) 35 (1) Sepsis Sepsis type: sepsis due to unspecified organism Sepsis acute organ dysfunction status: with acute organ dysfunction Severe sepsis acute organ dysfunction type: acute renal failure Acute renal failure type: unspecified Severe sepsis shock status: without septic shock Qualified Code(s): A41.9 - Sepsis, unspecified organism; R65.20 - Severe sepsis without septic shock; N17.9 - Acute kidney failure, unspecified
[2024-04-16] MEDS: methylPREDNISolone 40 MG in SYRINGE 0 ML IV SCH (10:55)
[2024-04-17 06:42] LABS: Hematocrit (blood only) 38.1 % (42.0-52.0); Hemoglobin 13.6 g/dl (14.0-18.0); Mean Corpuscular Hemoglobin 30.5 pg (25.0-34.0); Mean Corpuscular Hgb Conc 35.7 g/dL (32.0-36.0); Mean Corpuscular Volume 85.4 fL (80.0-100.0); Mean Platelet Volume 12.3 fL (9.4-12.4); Platelet Count 117 K/uL (130-400); RDW Coefficient of Variation 12.9 % (11.5-14.5); RDW Standard Deviation 40.3 fL (36.4-46.3); Red Blood Count 4.46 M/uL (4.70-6.10); White Blood Count 2.18 K/ul (4.8-10.8)
[2024-04-17 06:47] LABS: BUN Creatinine Ratio 19.6 (10-20); Calcium 8.3 mg/dl (8.6-10.3); Creatinine Clr Calc Pharmacy 75.9 ml/min; Potassium 3.9 mmol/L (3.5-5.1)
--- NOTE | 2024-04-17 09:58 | Hospitalist Progress Note ---
Date of Service April 17, 2024 Assessment & Plan (1) Sepsis: Plan: Suspected source multifocal pneumonia, due to Influenza A Resiolving (2) Multifocal pneumonia: Plan: Chest x ray shows evidence of multifocal PNA Biofire positive for Influenza A Continue tamiflu Also, there is a possiblilty of superimposed bacteria infection, will continue empiric ceftriaxone and Doxycycline, although cultures have been negative Duonebs Incentive spirometer Flutter valve patient is clinically much improved (3) Influenza A: Plan: Droplet isolation precautions Tamiflu 75mg PO BID (renally dosed) (4) TERRI (acute kidney injury): Plan: Resolved (5) Acute respiratory failure with hypoxia: Plan: Secondary to pneumonia some wheeze on exam start solumedrol 40mg Q8h, duonebs Aim O2 sats > 94% Now on 2l, from 6l yesterday (6) Diarrhea: Plan: Stool and c. diff PCR If PCR negative will consider adding loperamide (7) Thrombocytopenia: Plan: Secondary to sepsis, continue to monitor with AM labs (8) Anxiety: Plan: Continue sertraline Plan VTE Prophylaxis - low risk Diet - clear liquid, advance diet Disposition - admit to PCU Admission and Anticipated Discharge Date Admission Date: April 14, 2024 Subjective patient seen and examined, says his SOB did improve significantly Review of Systems Review of Systems: All systems reviewed are negative, apart from the ones contained in the history. Physical Exam Physical Exam: The patient is awake, alert and oriented 3, well developed and well nourished, normocephalic and atraumatic, lying in bed and in no acute distress. HEENT--PERRL, EOMI, mucous membranes and oropharynx mildly dry Neck--supple. No JVD. No bruits. Thyroid normal, trachea midline, no adenopathy. Heart--normal S1 and S2. No murmurs, rubs or gallops. Lungs--Reduced air entry on auscultation, some wheeze Abdomen--normal bowel sounds and soft. Extremities--no cyanosis or clubbing. No edema. Dermatologic--normal skin turgor, normal color, no abnormal lymph nodes, no rash. Neurologic--cranial nerves II through XII grossly intact. Rheumatologic--normal range of motion. Psychiatric--normal affect. Results & Data Results & Data Vital Signs (Past 12 Hours) Vital Signs Temp Pulse Pulse Resp BP BP Pulse Ox 04/17/24 08:00 04/17/24 07:29 97.3 F L 74 17 102/66 93 04/17/24 03:14 97.7 F 65 18 117/77 96 04/16/24 23:01 97.9 F 67 16 129/84 99 04/16/24 22:07 63 O2 Del Method O2 Flow Rate 04/17/24 08:00 Nasal Cannula 2 04/17/24 07:29 Nasal Cannula 2 04/17/24 03:14 Nasal Cannula 3 04/16/24 23:01 Nasal Cannula 4 04/16/24 22:07 PG Care Time/CCT Total # of Minutes Spent Total Time Spent with Patient: Total time spent is greater than 50% in coordination of care (as documented) at patient's floor/unit and/or counseling patient: Coding Level of Care Code 20214 SUB INP/OBS CARE 2/35MIN Diagnoses Sepsis with acute renal failure without septic shock, due to unspecified organism, unspecified acute renal failure type A41.9; R65.20; N17.9 Sepsis type: sepsis due to unspecified organism Sepsis acute organ dysfunction status: with acute organ dysfunction Severe sepsis acute organ dysfunction type: acute renal failure Acute renal failure type: unspecified Severe sepsis shock status: without septic shock Multifocal pneumonia J18.9 Influenza A J10.1 TERRI (acute kidney injury) N17.9 Acute respiratory failure with hypoxia J96.01 Diarrhea R19.7 Thrombocytopenia D69.6 Anxiety F41.9 Time Spent (min) 35 (1) Sepsis Sepsis type: sepsis due to unspecified organism Sepsis acute organ dysfunction status: with acute organ dysfunction Severe sepsis acute organ dysfunction type: acute renal failure Acute renal failure type: unspecified Severe sepsis shock status: without septic shock Qualified Code(s): A41.9 - Sepsis, unspecified organism; R65.20 - Severe sepsis without septic shock; N17.9 - Acute kidney failure, unspecified
[2024-04-18 06:05] LABS: Hematocrit (blood only) 36.4 % (42.0-52.0); Hemoglobin 13.3 g/dl (14.0-18.0); Mean Corpuscular Hemoglobin 31.1 pg (25.0-34.0); Mean Corpuscular Hgb Conc 36.5 g/dL (32.0-36.0); Mean Corpuscular Volume 85.2 fL (80.0-100.0); Mean Platelet Volume 11.3 fL (9.4-12.4); Platelet Count 172 K/uL (130-400); RDW Coefficient of Variation 12.6 % (11.5-14.5); Red Blood Count 4.27 M/uL (4.70-6.10); White Blood Count 5.41 K/ul (4.8-10.8)
[2024-04-18 06:19] LABS: BUN Creatinine Ratio 28.4 (10-20); Calcium 8.4 mg/dl (8.6-10.3); Creatinine Clr Calc Pharmacy 89.5 ml/min; Potassium 3.8 mmol/L (3.5-5.1)
[2024-04-18 07:18] VITALS: PULSE 62; RESP 17; TEMP 97.5; O2SAT 96
--- NOTE | 2024-04-18 09:41 | Discharge Summary ---
Date of Service April 18, 2024 Admission HPI Per Admitting Provider George Jean-Baptiste is a 18 year old male who presents to the ER with generalized illness since . He reports sickness including diarrhea, fever, dizziness, body aches, shortness of breath, generalized fatigue, nausea and vomiting. He denies any nasal congestion, sinus pain, sore throat or urinary symptoms. No history of antibiotics in the last month or c. diff but he has noticed his diarrhea is watery. No melena or bright red blood in stool. While his mother was outside the room he denies any illicit substances, vaping, tobacco use or marijuana. His mother notes he has generally been more unwell since having meningitis 1.5 years ago for example having abnormal thyroid levels for which he sees endocrinology but does not take any medications. Admission Exam (Per Admitting) Constitutional The patient is awake, alert and oriented 3, well developed and well nourished, normocephalic and atraumatic, lying in bed and in no acute distress. HEENT--PERRL, EOMI, mucous membranes and oropharynx mildly dry Neck--supple. No JVD. No bruits. Thyroid normal, trachea midline, no adenopathy. Heart--normal S1 and S2. No murmurs, rubs or gallops. Lungs--clear bilaterally, no respiratory distress, no accessory muscle use. Abdomen--normal bowel sounds and soft. Extremities--no cyanosis or clubbing. No edema. Dermatologic--normal skin turgor, normal color, no abnormal lymph nodes, no rash. Neurologic--cranial nerves II through XII grossly intact. Rheumatologic--normal range of motion. Psychiatric--normal affect. Discharge Data Consultations 04/14/24 18:31 ED Decision to Admit Stat Hospital Course (1) Sepsis: Suspected source multifocal pneumonia, due to Influenza A Now resolved (2) Multifocal pneumonia: Chest x ray shows evidence of multifocal PNA Biofire positive for Influenza A Continue tamiflu Also, there is a possiblilty of superimposed bacteria infection, will continue empiric ceftriaxone and Doxycycline, although cultures have been negative Duonebs Incentive spirometer Flutter valve patient is clinically much improved Will discharge him home on PO tamiflu for 2 more days and cefdinir for 5 days (3) Influenza A: Droplet isolation precautions Tamiflu 75mg PO BID (renally dosed) (4) TERRI (acute kidney injury): Resolved (5) Acute respiratory failure with hypoxia: Secondary to pneumonia Now resolved (6) Diarrhea: Stool and c. diff PCR If PCR negative will consider adding loperamide (7) Thrombocytopenia: Secondary to sepsis, now resolved (8) Anxiety: Continue sertraline Plan VTE Prophylaxis - low risk Diet - clear liquid, advance diet Disposition - d/c home Coding Level of Care Code 78590 INP/OBS DISCH >30 MIN Diagnoses Sepsis with acute renal failure without septic shock, due to unspecified organism, unspecified acute renal failure type A41.9; R65.20; N17.9 Sepsis type: sepsis due to unspecified organism Sepsis acute organ dysfunction status: with acute organ dysfunction Severe sepsis acute organ dysfunction type: acute renal failure Acute renal failure type: unspecified Severe sepsis shock status: without septic shock Multifocal pneumonia J18.9 Influenza A J10.1 TERRI (acute kidney injury) N17.9 Acute respiratory failure with hypoxia J96.01 Diarrhea R19.7 Thrombocytopenia D69.6 Anxiety F41.9 Time Spent (min) 35
[2024-04-18 09:42] VITALS: BP 129/84
== END 2024-04-18 11:11 | disposition home or self-care (01) | DRG 871 ==
LOC: ED 15:47 → 4W 18:32 → SUATTDRO 18:32 → 4W 21:14